=== PATIENT | female | born 1985 | race Hispanic/Latino ===

== ENCOUNTER 2016-09-04 00:07 | Emergency (ER) | payer OTHER ==
[2016-09-04 00:48] VITALS: BMI 23.3
[2016-09-04 02:04] LABS: BASO # 0.1 K/uL (0.0-0.2); BASO % 1.3 % (0.0-2.0); EOS # 0.1 K/uL (0.0-0.7); EOS % 0.9 % (0.0-4.0); HEMATOCRIT 34.8 % (34.0-47.0); LYMPH # 1.4 K/uL (1.0-4.3); LYMPH % 18.4 % (20.0-40.0); MEAN CELL VOLUME 95.3 fl (81.0-99.0); MEAN CORPUSCULAR HEMOGLOBIN 32.8 pg (27.0-31.0); MEAN CORPUSCULAR HGB CONC 34.4 g/dL (33.0-37.0); MEAN PLATELET VOLUME 12.9 fl (7.2-11.7); MONO # 0.6 K/uL (0.0-0.8); MONO % 7.7 % (0.0-10.0); NEUT # 5.4 K/uL (1.8-7.0); NEUT % 71.7 % (50.0-75.0); RED CELL DISTRIBUTION WIDTH 12.7 % (11.5-14.5); WHITE BLOOD COUNT 7.5 K/uL (4.8-10.8)
[2016-09-04 02:11] LABS: CHLORIDE 107 mmol/L (98-107)
[2016-09-04 02:12] LABS: POTASSIUM 3.9 MMOL/L (3.6-5.0); SODIUM 136 mmol/l (132-148)
[2016-09-04 02:14] LABS: ALKALINE PHOSPHATASE 149 U/L (38-126); ALT/SGPT 23 U/L (9-52); AST/SGOT 22 U/L (14-36); BILIRUBIN,TOTAL 0.4 mg/dl (0.2-1.3); BLOOD UREA NITROGEN 12 mg/dl (7-17); CARBON DIOXIDE 19 mmol/L (22-30); GFR AFRICAN-AMERICAN > 60; GLUCOSE,RANDOM 92 mg/dL (65-105); TOTAL PROTEIN 7.7 G/DL (6.3-8.2)
[2016-09-04 02:15] LABS: CALCIUM 9.4 mg/dL (8.4-10.2); URIC ACID 6.8 mg/Dl (2.2-7.5)
[2016-09-04 02:20] LABS: RBC URINE 2 /hpf (0-3); URINE BACTERIA RARE (<OCC); URINE BILIRUBIN NEGATIVE (NEGATIVE); URINE BLOOD NEGATIVE (NEGATIVE); URINE COLOR STRAW (YELLOW); URINE GLUCOSE (UA) NEG (Normal); URINE KETONE NEGATIVE (NEGATIVE); URINE LEUKOCYTE ESTERASE NEG Leu/uL (Negative); URINE PROTEIN NEGATIVE (NEGATIVE); URINE UROBILINOGEN 0.2-1.0 mg/dL (0.2-1.0); WBC URINE 1 /hpf (0-5)
--- NOTE | 2016-09-05 13:54 | OBHP ---
Datetime: 09/04/2016 01:00 IP Adm Impression: Term, intrauterine ; No Active Labor; Intact Membranes IP Chief Complaint Other: headache IP Admit Plan: Observation/Evaluation; Discharge home Admit Comment, IP Provider: 31 yr at 39.3 wks GA GDM class A1 presents to [facility] with complaint o f headache located in the right temporal and frontal area which was 8/10 and decreased to 4/10 pain s neeraj after 325mg of Tylenol. Denies vaginal bleeding, LOF, ctx's. + movement . Reports routine care with Dr. Avina, normal glucose log checks at home, adhering to recommended diet, adequate hydration and PO intake. Patient has no other concerns or complaints at this time. care/course: HIV neg, HepBsAg neg, Rubella Immune, RPR neg, Influenza vaccine given, last wellbeing US 08/28/16: BPP 8/8, normal RAMOS OBHx: none PMHx: none SurHx: none SocialHx: denies Etoh/drugs/smoking Meds: PNV, tylenol 325mg once at 7pm today Allergies: NKDA PE: VSS, patient in no acute distress HEENT: normal, EOMI, PERRLA Cardiac: S1 S2 normal, no murmurs/rubs/gallops Lungs: CTABL Abd: gravid, nontender Ext: no edema, DTR's 2+ throughout Monitoring: FHR 125 bpm, moderate variability 6-25bpm, accelerations 15x15, no decels, Categ ory I A: 31 yr wit IUP at 39.3 wks GA, GDM class A1 with persistent moderate headache, stable P: -Serial blood pressures -r/o pre-eclampsia : CBC, CMP, LDH, Uric acid -f/u labs, if wnl, patient may need further ED evaluation of persistent headache Mary Polo M.D. PGY1 OBH ADDENDUM: PT seen _ examined by me. She denies blurred va, scotomata, ruq pain, n/v. She states she does islas ffer from h/a intermittently when not . p: pt advised that bps wnl and preeclampsia seems less likely. Addendum 1: pt given Tylenol 650mg with decreased h/a rated as 2/10 and desired d/c home. Addendum 2: platelet ct 106 on 07/04 175 p: pt called and advised of decreased platelet count. she denies h/a at present. pt and spouse adv ised that may be idiopathic thrombo or possibly related to preeclampsia(though this appears to be les s likely). she is to make an appt with dr avina today/tomorrow. if h/a returns she was advised to com e to [facility] immediately. pt d/w dr. avina Extremities - PN: Normal Abdomen - PN: Normal Back - PN: Normal Lungs - PN: Normal Heart - PN: Normal Thyroid - PN: Normal Neurologic - PN: Normal HEENT - PN: Normal General - PN: Normal FHR - Baseline A Provider: 125 Gestation - Est Wks by US: 39.3 Vital Signs Provider: Reviewed; Within Normal Limits IP Chief Complaint: Maternal discomfort NICHD Variability Prov Fetus A: Moderate 6-25bpm NICHD Accel Fetus A IP Provider: 15X15 FHR Category Provider Fetus A: Category I NICHD Decel Fetus A IP Provider: None DTRs - PN: Normal
== END 2016-09-05 02:45 | disposition home or self-care (01) ==
LOC: H.EROB2 00:07
DX: O24.419 Gestational diabetes mellitus in pregnancy, unspecified control (principal); Z3A.39 39 weeks gestation of pregnancy

== ENCOUNTER 2016-09-07 15:16 | Emergency (ER) | payer OTHER ==
[2016-09-07 16:40] LABS: BASO % 0.7 % (0.0-2.0); EOS # 0.1 K/uL (0.0-0.7); EOS % 1.1 % (0.0-4.0); HEMATOCRIT 36.4 % (34.0-47.0); LYMPH # 1.2 K/uL (1.0-4.3); LYMPH % 18.2 % (20.0-40.0); MEAN CELL VOLUME 94.8 fl (81.0-99.0); MEAN CORPUSCULAR HEMOGLOBIN 32.8 pg (27.0-31.0); MEAN CORPUSCULAR HGB CONC 34.6 g/dL (33.0-37.0); MEAN PLATELET VOLUME 12.1 fl (7.2-11.7); MONO # 0.7 K/uL (0.0-0.8); MONO % 10.9 % (0.0-10.0); NEUT # 4.5 K/uL (1.8-7.0); NEUT % 69.1 % (50.0-75.0); RED CELL DISTRIBUTION WIDTH 12.6 % (11.5-14.5); WHITE BLOOD COUNT 6.5 K/uL (4.8-10.8)
--- NOTE | 2016-09-07 17:23 | US ---
PROCEDURE: Limited obstetric ultrasound HISTORY: please check RAMOS COMPARISON: None TECHNIQUE: Transvaginal pelvic ultrasound was performed. FINDINGS: There is a single live intrauterine gestation in cephalic presentation. heart rate is 159 beats per minute. The amniotic fluid index is 14.4 cm. The total biophysical profile score is 8. Placenta is anterior and to the left. IMPRESSION: Amniotic fluid index is normal and measures 14.4 cm. Single live intrauterine fetus in cephalic presentation. The biophysical profile score is 8.
--- NOTE | 2016-09-07 18:42 | OBHP ---
Datetime: 09/07/2016 16:25 IP Adm Impression: Term, intrauterine IP Admit Plan: Observation/Evaluation Admit Comment, IP Provider: 31 yo G1 at 39+6 wks reports that she felt a large amt of d/c on Fri., 0 09/05/2016, at 5 am, has felt a little leaking at night since, reports that there is blood in d/c, rep orts feeling mild ctxns since 7 am today, reports FM. Pt has diet-controlled GDM. Pt also had low p latelets, 106 on 09/04/2016. 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 Pt given labor precautions and will f/u w/ Dr. Avina tomorrow. Abdomen - PN: Normal FHR - Baseline A Provider: 120 Contraction Comments Provider: Q6-7 Comments, ACOG Physical Exam: Spec: mucus w/ blood, positive nitrazine, negative fern Vital Signs Provider: Reviewed IP Chief Complaint: Suspected ruptured membranes NICHD Variability Prov Fetus A: Moderate 6-25bpm NICHD Accel Fetus A IP Provider: 15X15 FHR Category Provider Fetus A: Category I NICHD Decel Fetus A IP Provider: None Dilatation, Provider: 2 Effacement, Provider: 70 Station, Provider: -1 Genitourinary Exam: Normal
== END 2016-09-07 23:00 | disposition home or self-care (01) ==
LOC: H.EROB2 15:16
DX: O47.1 False labor at or after 37 completed weeks of gestation (principal); Z3A.40 40 weeks gestation of pregnancy; O48.0 Post-term pregnancy; O24.410 Gestational diabetes mellitus in pregnancy, diet controlled

== ENCOUNTER 2016-09-08 23:59 | Inpatient (IN) | payer OTHER ==
[2016-09-09] MEDS ORDERED: Lactated Ringer's 1,000 ML IV SCH (01:00)
[2016-09-09] MEDS ORDERED: Lidocaine 1% Inj (20ml) ONE (01:13)
[2016-09-09 01:34] VITALS: BP 132/88; PULSE 87; RESP 18; TEMP 98.4; O2SAT 100
[2016-09-09 01:44] LABS: BASO # 0.1 K/uL (0.0-0.2); BASO % 0.6 % (0.0-2.0); EOS % 0.2 % (0.0-4.0); HEMATOCRIT 37.9 % (34.0-47.0); LYMPH # 1.2 K/uL (1.0-4.3); LYMPH % 12.5 % (20.0-40.0); MEAN CELL VOLUME 95.1 fl (81.0-99.0); MEAN CORPUSCULAR HEMOGLOBIN 32.6 pg (27.0-31.0); MEAN CORPUSCULAR HGB CONC 34.3 g/dL (33.0-37.0); MEAN PLATELET VOLUME 12.8 fl (7.2-11.7); MONO # 0.9 K/uL (0.0-0.8); MONO % 8.8 % (0.0-10.0); NEUT # 7.5 K/uL (1.8-7.0); NEUT % 77.9 % (50.0-75.0); NRBC % 0.1 % (0.0-0.0); RED CELL DISTRIBUTION WIDTH 12.8 % (11.5-14.5); WHITE BLOOD COUNT 9.7 K/uL (4.8-10.8)
[2016-09-09 01:47] LABS: ALKALINE PHOSPHATASE 169 U/L (38-126); ALT/SGPT 30 U/L (9-52); AST/SGOT 26 U/L (14-36); BILIRUBIN,TOTAL 0.3 mg/dl (0.2-1.3); BLOOD UREA NITROGEN 12 mg/dl (7-17); CALCIUM 9.6 mg/dL (8.4-10.2); CARBON DIOXIDE 19 mmol/L (22-30); CHLORIDE 106 mmol/L (98-107); GFR AFRICAN-AMERICAN > 60; GLUCOSE,RANDOM 88 mg/dL (65-105); POTASSIUM 3.8 MMOL/L (3.6-5.0); SODIUM 138 mmol/l (132-148); TOTAL PROTEIN 7.8 G/DL (6.3-8.2); URIC ACID 7.1 mg/Dl (2.2-7.5)
[2016-09-09] MEDS ORDERED: Oxytocin 30 units/LR 500ML 30 U/500 ML BAG IV ONE ×2 (04:51→11:45)
--- NOTE | 2016-09-09 06:40 | OBHP ---
Datetime: 09/09/2016 05:05 FHR - Baseline A Provider: 130 Amniotic Fluid Color, Provider: Clear Contraction Comments Provider: q 2-5 mins Vital Signs Provider: Reviewed; Within Normal Limits NICHD Variability Prov Fetus A: Moderate 6-25bpm NICHD Accel Fetus A IP Provider: 15X15 NICHD Decel Fetus A IP Provider: None Dilatation, Provider: 9 Effacement, Provider: 100 Station, Provider: -1 Datetime: 09/09/2016 00:13 IP Adm Impression: Term, intrauterine IP Admit Plan: Observation/Evaluation Admit Comment, IP Provider: 31 yr at 40.1wks GA , PIEDAD 09/08/16 by LMP and 1st tri US, GDM class A1 presents to [facility] with complaint of ctx's q5min, painscale 12/25, which began at 5am this morning b ut became regular at 11pm. Denies vaginal bleeding. + movement . Reports routine care with Dr. Avina, normal glucose log checks at home, adhering to recommended diet, adequate hydration and PO intake. Patient has no other concerns or complaints at this time. care/course: GBS neg, HIV neg, HepBsAg neg, Rubella Immune, RPR neg, Influenza vaccine gi helen, wellbeing US 08/28/16: BPP 8/8, normal RAMOS, decreased platelet count of 105 (09/07/16), Limi faheem OB BPP 09/07/16: normal RAMOS, single IUP in cephaic presentation, BPP 8/8. OBHx: none PMHx: none SurHx: none SocialHx: denies Etoh/drugs/smoking Meds: PNV Allergies: NKDA PE: VSS, patient in no acute distress, breathing through contractions HEENT: normal, EOMI, PERRLA Cardiac: S1 S2 normal, no murmurs/rubs/gallops Lungs: CTABL Abd: gravid, nontender Ext: no edema, DTR's 2+ throughout SVE: cervix dilated 9cm/ effacement 90%/ station 0 Monitoring: FHR 140 bpm, moderate variability 6-25bpm, accelerations 15x15, no decels, Linda gory I A: 31 yr wit IUP at 40.1 wks GA, GDM class A1 in active labor P: -Admit to labor and delivery -IV insertion, CBC, CMP, LDH, Uric Acid -IVF -Anesthesia consult -Monitor labor progress -Continuous monitoring Mary Polo M.D. PGY1 OBH ADDENDUM: pt seen _ examined by me. agree with above assessment and plan with following addition. pt denies h/a, scotomata, ruq pain, visual disturbances, n/v o: platelet 115, lfts nl I:Preg Induced Thrombocytopenia- with stable platelet, cmp Active Labor P: as above. dr. travis notified Pelvic Type - PN: Adequate Abdomen - PN: Normal Back - PN: Normal Lungs - PN: Normal Heart - PN: Normal Thyroid - PN: Normal Neurologic - PN: Normal HEENT - PN: Normal General - PN: Normal Membranes, Provider: Intact Comments, ACOG Physical Exam: SVE: cervix dilated 9cm/ effacement 90%/ station 0 EGA AdmitDate IP: 40.0 IP Chief Complaint: Uterine contractions FHR Category Provider Fetus A: Category I Genitourinary Exam: Normal DTRs - PN: Normal
--- NOTE | 2016-09-09 06:40 | OBPN ---
Datetime: 09/09/2016 05:05 IP Procedures: Sterile Vag Exam IP Progress Plan: Continue present management Membranes, Provider: Ruptured Amniotic Fluid Color, Provider: Clear Contraction Comments Provider: q 2-5 mins FHR - Baseline A Provider: 130 IP Progress Note Comment: Patient feeling contractions, does not want an epidural. VE=anterior lip/100/-1, AROM clear fluid SVB=[id number] mod cal, +accels, no decels TOCO = nica q 2-5 mins. A/P 1. Patient evaluated. Patient has been about the same exam for 4 hours. Patient was not contractin g adequately and now is ruptured. Discussed with patient although she has not made cervical change, w ill rupture and start Pitocin and recheck the patient in an hour. If the patient does not make cervic al change, or if there are signs of /maternal distress, will discuss delivery via with patient. All questions were answered and patient verbalized understanding 2. Patient was offerd anesthesia and does not want pain management at this time 3. CEFM and TOCO 4. Re-evaluate as needed Vital Signs Provider: Reviewed; Within Normal Limits NICHD Accel Fetus A IP Provider: 15X15 NICHD Variability Prov Fetus A: Moderate 6-25bpm Dilatation, Provider: 9 Effacement, Provider: 100 Station, Provider: -1 NICHD Decel Fetus A IP Provider: None Datetime: 09/09/2016 00:13 FHR Category Provider Fetus A: Category I Datetime: 09/04/2016 01:00 Gestation - Est Wks by US: 39.3
[2016-09-09] MEDS ORDERED: Fentanyl/Bupivacaine HCl 250 ML EPI ONE (07:14)
--- NOTE | 2016-09-09 07:23 | OBPN ---
Datetime: 09/09/2016 07:18 IP Informed Consent Obtain: Vaginal Delivery IP Procedures: Sterile Vag Exam IP Progress Plan: Continue present management Membranes, Provider: Ruptured Contraction Comments Provider: q 2-3 mins FHR - Baseline A Provider: 120 Presentation-Admit: Vertex IP Progress Note Comment: Patient progressing VE=10/100/+1 [id number] mod cal, +accels, early decelerations TOCO = ctxning q 2-3 mins A/P 1. Patient progressing, now in second stage of labor. Pitocin now at 8 mu/min. 2. Patient asking for epidural for pain. 3. CEFM and TOCO NICHD Accel Fetus A IP Provider: 15X15 FHR Category Provider Fetus A: Category I NICHD Variability Prov Fetus A: Moderate 6-25bpm Dilatation, Provider: 10 Effacement, Provider: 100 Station, Provider: 1 NICHD Decel Fetus A IP Provider: Early
--- NOTE | 2016-09-09 07:35 | OBADHP ---
Datetime: 09/09/2016 07:18 Presentation-Admit: Vertex FHR - Baseline A Provider: 120 Membranes, Provider: Ruptured Contraction Comments Provider: q 2-3 mins NICHD Variability Prov Fetus A: Moderate 6-25bpm NICHD Accel Fetus A IP Provider: 15X15 FHR Category Provider Fetus A: Category I NICHD Decel Fetus A IP Provider: Early Dilatation, Provider: 10 Effacement, Provider: 100 Station, Provider: 1 Datetime: 09/09/2016 05:05 Amniotic Fluid Color, Provider: Clear Vital Signs Provider: Reviewed; Within Normal Limits Datetime: 09/09/2016 01:18 Admit Comment, IP Provider: 31 yr at 40.1wks [place] , PIEDAD 09/08/16 by LMP and 1st tri US, GDM class A1 presents to [facility] with complaint of ctx's q5min, painscale 12/25, which began at 5am this morning b ut became regular at 11pm. Denies vaginal bleeding. + movement . Reports routine care with Dr. Avina, normal glucose log checks at home, adhering to recommended diet, adequate hydration and PO intake. Patient has no other concerns or complaints at this time. care/course: GBS neg, HIV neg, HepBsAg neg, Rubella Immune, RPR neg, Influenza vaccine gi helen, wellbeing US 08/28/16: BPP 8/8, normal RAMOS, decreased platelet count of 105 (09/07/16), Limi faheem OB BPP 09/07/16: normal RAMOS, single IUP in cephaic presentation, BPP 8/8. OBHx: none PMHx: none SurHx: none SocialHx: denies Etoh/drugs/smoking Meds: PNV Allergies: NKDA PE: VSS, patient in no acute distress, breathing through contractions HEENT: normal, EOMI, PERRLA Cardiac: S1 S2 normal, no murmurs/rubs/gallops Lungs: CTABL Abd: gravid, nontender Ext: no edema, DTR's 2+ throughout SVE: cervix dilated 9cm/ effacement 90%/ station 0 Monitoring: FHR 140 bpm, moderate variability 6-25bpm, accelerations 15x15, no decels, Linda gory I A: 31 yr wit IUP at 40.1 wks GA, GDM class A1 in active labor P: -Admit to labor and delivery -IV insertion, CBC, CMP, LDH, Uric Acid -IVF -Anesthesia consult -Monitor labor progress -Continuous monitoring Mary Polo M.D. PGY1 OBH ADDENDUM: pt seen _ examined by me. agree with above assessment and plan with following addition. pt denies h/a, scotomata, ruq pain, visual disturbances, n/v o: platelet 115, lfts nl I:Preg Induced Thrombocytopenia- with stable platelet, cmp Active Labor P: as above. dr. travis notified Datetime: 09/09/2016 00:13 Pelvic Type - PN: Adequate Abdomen - PN: Normal Back - PN: Normal Lungs - PN: Normal Heart - PN: Normal Thyroid - PN: Normal Neurologic - PN: Normal HEENT - PN: Normal General - PN: Normal Comments, ACOG Physical Exam: SVE: cervix dilated 9cm/ effacement 90%/ station 0 IP Chief Complaint: Uterine contractions Genitourinary Exam: Normal DTRs - PN: Normal EGA AdmitDate IP: 40.0 IP Adm Impression: Term, intrauterine IP Admit Plan: Observation/Evaluation Datetime: 09/04/2016 01:00 IP Chief Complaint Other: headache Extremities - PN: Normal Gestation - Est Wks by US: 39.3
[2016-09-09] MEDS ORDERED: Lidocaine 2% PF (10 ml) Amp ONE (11:55)
[2016-09-09] MEDS ORDERED: Oxycodone/Acetaminophen 5/325 mg Tab PO PRN ×2 (12:23→16:37)
[2016-09-09] MEDS ORDERED: Benzocaine/Menthol SPRAY TOP PRN (12:23)
--- NOTE | 2016-09-09 13:22 | NBADN ---
Datetime: 09/09/2016 13:08 Nsy Prov Gen Appearance: Within Normal Limits Nsy Prov Gen Appearance: Within Normal Limits Nsy Prov Skin: Within Normal Limits Nsy Prov Neuro: Normal Tone; [place]; Grasp; Suck Nsy Prov Musculoskeletal: Within Normal Limits; Full Range of Motion; Spontaneous Movement All Extre mities; Intact Clavicles; Clavicles without Crepitus; Gluteal Folds Symmetrical; Spine Within Normal Limits; No Sacral Dimple/Cyst Nsy Prov Head: Normal Fontanelles; Normocephalic; Sutures WNL; Caput Nsy Prov EENT: Mouth Within Normal Limits; Ears Within Normal Limits; Eyes Within Normal Limits; Nos e Within Normal Limits; Face Within Normal Limits Nsy Prov Cardiovascular: Within Normal Limits Nsy Prov GI: Within Normal Limits; Soft; Normal Liver; Non Palpable Spleen; Patent Anus Nsy Prov Umbilicus: Within Normal Limits Nsy Prov : Normal Male Genitalia Nsy Prov Respiratory Details: Occasional grunting and intermittent tachypnea that resolved. Nsy Prov Impression: Healthy Term ; Vital Signs Appropriate; Bonding Appropriately Nsy Prov Impression/Plan Details: Called for evaluation of the baby after . The baby required stimulation before crying; Has shoulder dystocia at . Arrived about 5 minutes after : Baby is active; Moves all extremities well; Has interrupted brief crying; Then, developed very occ asional grunting and intermittent occasional tachypnea with this crying. Observed in DR under the warmer, then when with the mother. O2 sat on RA taken in DR = 97-100% on RA. The interrupted crying, and occasional tachypnea and gr unting all resolved in about 45 minutes after . Mother is GBS negative. Short ROM. Shoulder dystocia. A: FT male NB by CHELSY. AGA. Well after mild respiratory distress. No musculoskeletal abnormaliti es on PE. P: Mother-baby unit care. Datetime: 09/04/2016 01:57 Mother's Rule Inc Maternal Age: Age >=35 at PIEDAD not specified Mother's Rule Thalassemia: Thalassemia History not specified Mother's Rule Neural Tube Defect: Neural Tube Defect History not specified Mother's Rule Congenital Heart: Congenital Heart Defect not specified Mother's Rule Down Syndrome: Down Syndrome History not specified Mother's Rule Marshal-Sachs: Marshal-Sachs History not specified Mother's Rule Phil: Phil History not specified Mother's Rule Familial Dysauto: Familial Dysautonomia History not specified Mother's Rule Sickle Cell: Sickle Cell Disease/Trait History not specified Mother's Rule Hemophilia: Hemophilia/Blood Disorder History not specified Mother's Rule Muscular Dystrophy: Muscular Dystrophy History not specified Mother's Rule Cystic Fibrosis: Cystic Fibrosis History not specified Mother's Rule Danis's Chor: Danis's Chorea History not specified Mother's Rule Mental Retardation: Mental Retardation/Autism History not specified Mother's Rule Fragile X: Fragile X Testing History not specified Mother's Rule Oth Inherited DO: Other Inherited/Chromosomal Disorders not specified Mother's Rule Maternal Metabolic: Maternal Metabolic History not specified Mother's Rule FOB Defects: Pt Father or FOB Defect History not specified Mother's Rule Hx Stillborn MBL: Loss/Stillborn History not specified Mother's Rule Other Genetic Hx: Other Genetic History not specified Mother's Rule Drugs/Medications: Drugs/Medications History not specified Mother's Rule Gonorrhea: Gonorrhea History Not Specified Mother's Rule Chlamydia: Chlamydia History not specified Mother's Rule Syphilis: Syphilis History not specified Mother's Rule HIV/AIDS Exp: HIV/Aids Exposure not specified Mother's Rule HPV: Human Papillomavirus History not specified Mother's Rule Genital Herpes: Genital Herpes not specified Mother's Rule TB: Tuberculosis History not specified Mother's Rule Hepatitis: Hepatitis History Not Specified Mother's Rule Rash or Viral Ill: Rash or Viral Illness History not specified Mother's Rule Diabetes: Diabetes History not specified Mother's Rule Hypertension MBL: History of Hypertension Not Specified Mother's Rule Heart Disease: Heart Disease History not specified Mother's Rule Autoimmune: Autoimmune Disorder History not specified Mother's Rule Kidney Disease: History of Kidney Disease/UTI not specified Mother's Rule Neurologic: Neurologic/Epilepsy Disorders not specified Mother's Rule Psych Disorders: Psychiatric Disorder History not specified Mother's Rule Depression/PP Dep: Depression/ Depression History not specified Mother's Rule Hepaitis/tLiver: History of Hepatitis/Liver Disease not specified Mother's Rule Varicos/Phlebitis: Varicosities/Phlebitis History Not Specified Mother's Rule Thyroid Dysfunct: Thyroid Dysfunction not specified Mother's Rule Trauma/Violence: Trauma/Violence History Not Specified Mother's Rule Blood Transfusion: Blood Transfusion History not specified Mother's Rule Sensitization: D (Rh) Sensitization not specified Mother's Rule Pulmonary: Pulmonary (Asthma, TB) History not specified Mother's Rule Breast: Breast History not specified Mother's Rule Wallcovering Texturer Surgery: Wallcovering Texturer Surgery Hx not specified Mother's Rule Hosp/Surgery: Hospitalization/Surgery History not specified Mother's Rule Anesthetic Comp: Anesthetic Complications Hx not specified Mother's Rule Abnormal Pap: Abnormal Pap Smear not specified Mother's Rule Uterine Anomaly: Uterine Anomaly/TOMAS not specified Mother's Rule Infertility: Infertility Not Specified Mother's Rule ART Treatment: ART Treatment History not specified Mother's Rule Other Med Disease: Other Medical Diseases History not specified Mother's Rule Family History: Significant Family History not specified
--- NOTE | 2016-09-09 14:36 | OBDS ---
DELIVERY PERSONNEL Delivery Doctor: Manju Avina DO Skimmer [employer]: Valrey Contreras RN MATERNAL INFORMATION Delivery Anesthesia: None Medications in Delivery: pitocin 30 units in 500 ml lr Estimated Blood Loss (ml): 350 Placenta Cultured: No Maternal Complications: None RN Comments: Live baby boy delivered to Dr. Avina. Shoulder distocia noted. Suprapubic, justin jase uver done, posterior shoulder delivered with next contraction. no fundal pressure used. nuchal cord x [address] costello notified during event and was in attendance immediatly following delivery. Apgars 8/9. Nursery nurse Rebeca Pineda called to assess pt, vitals WNL, Dr Costello ordered for rick rn to remain with mother at this time. Baby remains with mother for skin to skin/. Provider Comments: Over intact perineum, NAVD of live male infant from [facility]. Shoulder dystocia noted. Suprapubic and McRobert Maneuver was initialy used. Posterior shoulder was delivered with n ext CTX. No fundal pressure used. One loose nuchal cord noted. Placenta was delivered intact spon taneously. Some uterine atony was noted. With IV Pitocin and bimanual masseage, it was controlled. Uterus firm. Repair was done. She remained stable EBL 350cc LABOR SUMMARY EDC: 09/08/2016 00:00 No. Babies in Womb: 1 Attempted: No Labor Anesthesia: None LABOR INFORMATION Reason for Induction: Not Applicable Onset of Labor: 09/09/2016 00:45 Complete Dilatation: 09/09/2016 07:00 Oxytocin: Augmentation Group B Beta Strep: Negative Antibiotics # of Doses: 0 Steroids Given: None Reason Steroids Not Administered: Not Applicable MEMBRANES Membranes Rupture Method: Artificial Rupture of Membranes: 09/09/2016 04:50 Length of Rupture (hrs): 6.87 Amniotic Fluid Color: Clear Amniotic Fluid Amount: Small Amniotic Fluid Odor: Normal STAGES OF LABOR Stage 1 hrs: 6 Stage 1 min: 15 Stage 2 hrs: 4 Stage 2 min: 42 Stage 3 hrs: 0 Stage 3 min: 3 Total Time in Labor hrs: 11 Total Time in Labor min: 0 VAGINAL DELIVERY Episiotomy: None Laceration Extension: Second Degree Laceration Type: Perineal Laceration Repair Note: 2.0 Vicryl Rapide suture was used for repair. Dr Celaya called in for epiudr al dosing (anesthesia) Initial Vag Sponge Count: 10 Final Vag Sponge Count: 10 Initial Vag Sharps Count: 5 Final Vag Sharps Count: 5 Sponge Count Correct: Yes Sharps Count Correct: Yes Count Comment: 15 laps 4 needles one syringe BABY A INFORMATION Delivery Date/Time: 09/09/2016 11:42 Method of Delivery: Vaginal Born in Route : No : N/A Forceps: N/A Vacuum Extraction: N/A Shoulder Dystocia : Yes SHOULDER DYSTOCIA BABY A Delivery of Head: 09/09/2016 11:40 Infant Delivery Date/Time: 09/09/2016 11:42 Time Head to Delivery : 2.0 1st Intervention to Resolve: Gentle Attempt at Traction, Assisted by Maternal Expulsive Efforts 2nd Intervention to Resolve: McRobert's Maneuver 3rd Intervention to Resolve: Suprapubic Pressure 4th Intervention to Resolve: Posterior Arm Release Verify NO Fundal Pressure: No Fundal Pressure Applied Arm Under Symphisis at Del: Left PRESENTATION/POSITION BABY A Presentation: Cephalic Cephalic Presentation: Vertex Breech Presentation: N/A PLACENTA INFORMATION BABY A Placenta Delivery Time : 09/09/2016 11:45 Placenta Method of Delivery: Spontaneous Placenta Status: Delivered SCORES BABY A Heart Rate 1 min: >100 bpm Resp Effort 1 min: Good Cry Reflex Irritability 1 min: Cough or Sneeze or Pulls Away Muscle Tone 1 min: Active Motion Color 1 min: Blue/Pale Resuscitation Effort 1 min: N/A; Tactile Stimulation SCORE 1 MIN: 8 Heart Rate 5 min: >100 bpm Resp Effort 5 min: Good Cry Reflex Irritability 5 min: Cough or Sneeze or Pulls Away Muscle Tone 5 min: Active Motion Color 5 min: Body [place], Extremities Blue Resuscitation Effort 5 min: N/A SCORE 5 MIN: 9 INFORMATION BABY A Gestational Age at Delivery: 40.1 Gestational Status: Term Outcome : Liveborn Infant Condition : Stable Sex: Male WEIGHT/LENGTH BABY A Birthweight (gms): 3435 Infant Weight (lb): 7 Weight (oz): 9 CORD INFORMATION BABY A No. Cord Vessels: 3 Nuchal Cord : Around Neck x1, Loose Cord Blood Taken: Yes Suction: Mouth; Nose ASSESSMENT BABY A Infant Complications: Shoulder Dystocia Physical Findings at Delivery: Caput Succedaneum Infant Respirations: Appears Normal [place]/ALS Called : Yes Infant Care By: Dr Costello/ Maria M Contreras Transferred To: Nursery
[2016-09-09] MEDS: Benzocaine/Menthol SPRAY TOP PRN (18:52)
[2016-09-10 07:00] LABS: MEAN CELL VOLUME 94.9 fl (81.0-99.0); MEAN CORPUSCULAR HEMOGLOBIN 33.8 pg (27.0-31.0); MEAN CORPUSCULAR HGB CONC 35.6 g/dL (33.0-37.0); RED CELL DISTRIBUTION WIDTH 12.6 % (11.5-14.5); WHITE BLOOD COUNT 10.6 K/uL (4.8-10.8)
--- NOTE | 2016-09-10 07:08 | OBPN ---
Datetime: 09/09/2016 08:00 IP Progress Impression: Normal progression of labor; Reassuring heart rate IP Informed Consent Obtain: Vaginal Delivery; Risks, Benefits and Alternatives Discussed IP Progress Plan: Continue present management; Augmentation Pool Provider: Positive Membranes, Provider: Ruptured FHR - Baseline A Provider: 120 Presentation-Admit: Vertex IP Progress Note Comment: OB Hopsitalist on-call...sign out rec'd She was admitted 9cm at 00:45am...SROM 4:50am at 9cm...started on Pitocin 5:10am and epidural just given...currently she feel pressure but more comfortable...resting because she had so much pain befo re. SVE 10cm Second stage of labor PLAN: Anticipate ...start pushing when she feel ready NICHD Accel Fetus A IP Provider: 15X15 FHR Category Provider Fetus A: Category I NICHD Variability Prov Fetus A: Moderate 6-25bpm Dilatation, Provider: 10 Effacement, Provider: 100 Station, Provider: 0 NICHD Decel Fetus A IP Provider: None
--- NOTE | 2016-09-10 07:09 | OBDS ---
DELIVERY PERSONNEL Delivery Doctor: Manju Avina DO Car Record Clerk: Valery Contreras RN MATERNAL INFORMATION Delivery Anesthesia: None Medications in Delivery: pitocin 30 units in 500 ml lr Estimated Blood Loss (ml): 350 Placenta Cultured: No Maternal Complications: None RN Comments: Live baby boy delivered to Dr. Avina. Shoulder distocia noted. Suprapubic, justin jase uver done, posterior shoulder delivered with next contraction. no fundal pressure used. nuchal cord x [address] costello notified during event and was in attendance immediatly following delivery. Apgars 8/9. Nursery nurse Rebeca Pineda called to assess pt, vitals WNL, Dr Costello ordered for rick rn to remain with mother at this time. Baby remains with mother for skin to skin/. Provider Comments: Over intact perineum, NAVD of live male infant from [facility] pres. Shoulder dystocia noted. Suprapubic and McRobert Maneuver was initialy used. Posterior shoulder was delivered with n ext CTX. No fundal pressure used. One loose nuchal cord noted. Placenta was delivered intact spon taneously. Some uterine atony was noted. With IV Pitocin and bimanual masseage, it was controlled. Uterus firm. Repair was done. She remained stable EBL 350cc PT started pushing at 8:45am with epidural LABOR SUMMARY EDC: 09/08/2016 00:00 No. Babies in Womb: 1 Attempted: No Labor Anesthesia: None LABOR INFORMATION Reason for Induction: Not Applicable Onset of Labor: 09/09/2016 00:45 Complete Dilatation: 09/09/2016 07:00 Oxytocin: Augmentation Group B Beta Strep: Negative Group B Beta Strep: Negative Antibiotics # of Doses: 0 Steroids Given: None Reason Steroids Not Administered: Not Applicable MEMBRANES Membranes Rupture Method: Artificial Rupture of Membranes: 09/09/2016 04:50 Length of Rupture (hrs): 6.87 Amniotic Fluid Color: Clear Amniotic Fluid Amount: Small Amniotic Fluid Odor: Normal STAGES OF LABOR Stage 1 hrs: 6 Stage 1 min: 15 Stage 2 hrs: 4 Stage 2 min: 42 Stage 3 hrs: 0 Stage 3 min: 3 Total Time in Labor hrs: 11 Total Time in Labor min: 0 VAGINAL DELIVERY Episiotomy: None Laceration Extension: Second Degree Laceration Type: Perineal Laceration Repair Note: 2.0 Vicryl Rapide suture was used for repair. Dr Celaya called in for epiudr al dosing (anesthesia) Initial Vag Sponge Count: 10 Final Vag Sponge Count: 10 Initial Vag Sharps Count: 5 Final Vag Sharps Count: 5 Sponge Count Correct: Yes Sharps Count Correct: Yes Count Comment: 15 laps 4 needles one syringe BABY A INFORMATION Delivery Date/Time: 09/09/2016 11:42 Method of Delivery: Vaginal Born in Route : No : N/A Forceps: N/A Vacuum Extraction: N/A Shoulder Dystocia : Yes SHOULDER DYSTOCIA BABY A Delivery of Head: 09/09/2016 11:40 Infant Delivery Date/Time: 09/09/2016 11:42 Time Head to Delivery : 2.0 1st Intervention to Resolve: Gentle Attempt at Traction, Assisted by Maternal Expulsive Efforts 2nd Intervention to Resolve: McRobert's Maneuver 3rd Intervention to Resolve: Suprapubic Pressure 4th Intervention to Resolve: Posterior Arm Release Verify NO Fundal Pressure: No Fundal Pressure Applied Arm Under Symphisis at Del: Left PRESENTATION/POSITION BABY A Presentation: Cephalic Cephalic Presentation: Vertex Breech Presentation: N/A PLACENTA INFORMATION BABY A Placenta Delivery Time : 09/09/2016 11:45 Placenta Method of Delivery: Spontaneous Placenta Status: Delivered SCORES BABY A Heart Rate 1 min: >100 bpm Resp Effort 1 min: Good Cry Reflex Irritability 1 min: Cough or Sneeze or Pulls Away Muscle Tone 1 min: Active Motion Color 1 min: Blue/Pale Resuscitation Effort 1 min: N/A; Tactile Stimulation SCORE 1 MIN: 8 Heart Rate 5 min: >100 bpm Resp Effort 5 min: Good Cry Reflex Irritability 5 min: Cough or Sneeze or Pulls Away Muscle Tone 5 min: Active Motion Color 5 min: Body [place], Extremities Blue Resuscitation Effort 5 min: N/A SCORE 5 MIN: 9 INFORMATION BABY A Gestational Age at Delivery: 40.1 Gestational Status: Term Outcome : Liveborn Condition : Stable Sex: Male WEIGHT/LENGTH BABY A Birthweight (gms): 3435 Infant Weight (lb): 7 Weight (oz): 9 CORD INFORMATION BABY A No. Cord Vessels: 3 Nuchal Cord : Around Neck x1, Loose Cord Blood Taken: Yes Suction: Mouth; Nose ASSESSMENT BABY A Complications: Shoulder Dystocia Physical Findings at Delivery: Caput Succedaneum Respirations: Appears Normal Operations/Dispatch/ALS Called : Yes Infant Care By: Dr Costello/ Maria M Contreras Transferred To: [facility]
[2016-09-10] MEDS: Multivitamin With Minerals Tab PO SCH (08:22)
[2016-09-10] MEDS ORDERED: Multivitamin With Minerals Tab PO SCH (09:00)
--- NOTE | 2016-09-10 11:13 | OBPPN ---
Datetime: 09/10/2016 11:10 PP Pain Prov: Within normal limits PP Nausea Prov: Denies PP Flatus Prov: Yes PP Breasts Prov: Not Done PP Heart Prov: Normal PP Lungs Prov: Normal PP Abdomen/Uterus Prov: Normal PP Lochia Prov: Not Done PP Vulva/Perineum Prov: Not Done PP CVA Tenderness Prov: Normal PP Extremities Prov: Normal PP Progress Prov: Normal PP Impression Prov: Normal progression PP Plan Prov: Discharge PP Progress Note Prov: day #1 Patient doing well reports minimal lochia denies shortness of breath palpitations. Vital signs stable afebrile Uterus firm below the umbilicus Extremities no Homans day #1 Motrin as needed Ambulation Anticipate discharge in a.m. Vital Signs Provider PP: Reviewed
[2016-09-10 18:28] LABS: EOS # 0.1 K/uL (0.0-0.7); MONO # 0.8 K/uL (0.0-0.8)
[2016-09-10 18:53] LABS: BASO % 0.3 % (0.0-2.0); EOS % 0.9 % (0.0-4.0); HEMATOCRIT 26.7 % (34.0-47.0); LYMPH # 1.3 K/uL (1.0-4.3); LYMPH % 11.3 % (20.0-40.0); MEAN CELL VOLUME 95.7 fl (81.0-99.0); MEAN CORPUSCULAR HEMOGLOBIN 32.8 pg (27.0-31.0); MEAN CORPUSCULAR HGB CONC 34.3 g/dL (33.0-37.0); MEAN PLATELET VOLUME 11.6 fl (7.2-11.7); MONO % 6.9 % (0.0-10.0); NEUT # 9.6 K/uL (1.8-7.0); NEUT % 80.6 % (50.0-75.0); RED CELL DISTRIBUTION WIDTH 12.8 % (11.5-14.5); WHITE BLOOD COUNT 11.9 K/uL (4.8-10.8)
[2016-09-11] MEDS: Multivitamin With Minerals Tab PO SCH (08:24)
[2016-09-11] MEDS ORDERED: Hydrocortisone-Pramoxine 1%-1% Foam(10 gm) TOP PRN (08:35)
--- NOTE | 2016-09-11 08:38 | OBDCSUM ---
Datetime: 09/11/2016 08:37 Discharged to, Provider: Home Follow up at, Provider: Dr. Fabrice Low Instr Activity: Normal activity; May Shower Disch Instr Diet: Regular Discharge Instructions, Provider: Routine instructions given Discharge Diagnosis, Provider: Term Delivered Discharge Time: 09/11/2016 08:37 Follow up in weeks, Provider: 6 weeks Contraception discussed, Prov: No Disch Activity Restrictions: No exercising; No lifting; No sexual activity; Nothing in vagina - Inte rcourse, tampons, douche
--- NOTE | 2016-09-11 08:38 | OBPPN ---
Datetime: 09/11/2016 08:35 PP Pain Prov: Within normal limits PP Nausea Prov: Denies PP Abdomen/Uterus Prov: Normal PP Lochia Prov: Normal PP Extremities Prov: Normal PP Progress Prov: Normal PP Impression Prov: Normal progression PP Plan Prov: Discharge PP Progress Note Prov: PPD2 s/p , doing well, breast feeding Rx's motrin and ferous sulfate given Discharge home today Vital Signs Provider PP: Reviewed; Within Normal Limits
[2016-09-11] MEDS ORDERED: Lansinoh for Breast Feeding Mothers TP PRN (12:29)
[2016-09-11] MEDS: Benzocaine/Menthol SPRAY TOP PRN (13:40)
== END 2016-09-11 14:50 | disposition home or self-care (01) | DRG 775 ==
LOC: H.EROB2 23:59 → H.L&D 09-09 00:59 → H.OB/GYN 09-09 15:15
PROVIDERS: ADMIT Obstetrics & Gynecology; ATTEND Obstetrics & Gynecology
PROC: 0KQM0ZZ Repair Perineum Muscle, Open Approach (ICD-10-PCS; principal; 2016-09-09)
PROC: 10E0XZZ Delivery of Products of Conception, External Approach (ICD-10-PCS; 2016-09-09)
PROC: 4A1HXCZ Monitoring of Products of Conception, Cardiac Rate, External Approach (ICD-10-PCS; 2016-09-09)
DX: O24.429 Gestational diabetes mellitus in childbirth, unspecified control (principal); O48.0 Post-term pregnancy; Z37.0 Single live birth; Z3A.40 40 weeks gestation of pregnancy; O69.81X0 Labor and delivery complicated by cord around neck, without compression, not applicable or unspecified; O70.1 Second degree perineal laceration during delivery